=== PATIENT | male | born 1995 | race Caucasian/White ===

== ENCOUNTER 2016-07-26 13:40 | Emergency (ER) | payer BC ==
--- NOTE | 2016-07-26 15:07 | UC ---
Conchita Kate Rebecca, scribed for Nita Lemons MD on 07/26/16 at 1437 . Skin Complaint HPI - HPI Summary HPI Summary: Pt is a 21 y/o M who presents to [facility] c/o a lump on the side of the L testicle that he noticed 10 days ago for the first time. . He reports the lump to be about the size of a pea and cannot be seen from the skin. States "it feels like it is on the surface." Pt denies testicular pain. Sx aggravated and alleviated by nothing. No analgesia taken. Notes a smaller lump on the top of the R testicle as well, but this is smaller and he is most concerned about the lump on the left. Denies any open wounds on the skin. Denies pain or pruritus in the associated region. Denies fever, chills, dysuria, penile drainage, constipation and pain or blood with BM. Denies back pain, pain with erection or ejaculation. Not sexually active. No h/o STDs. Denies SOB - states that he is coming over a recent cold, no any SOB he has experience he deemed as secondary to illness. Denies sore throat. Reports he has not shaved his genital region. Denies sexual activity. Denies any recent trauma or possibility of injury during sports. When asked, pt reports that current sx are unlike typical razor irritation. Pt presents to [facility] today to r/o CA after not being able to schedule a urologist appointment. Pt without h/o cancer. Pt's mom with bladder cancer. Negative for FHx genital CA. Patients medication reviewed this visit. - History of Current Complaint Chief Complaint: UCSkin Time Seen by Provider: 07/26/16 14:35 Stated Complaint: PRIVATE (LUMP) Hx Obtained From: Patient Onset/Duration: Sudden Onset, Lasting Days - 10 days, Still Present Timing: Constant Current Severity: None Pain Intensity: 0 Pain Scale Used: 0-10 Numeric Location: Other - Testicles Aggravating: Nothing Alleviating: Nothing Associated Signs & Symptoms: Positive: Negative. Negative: Difficulty Breathing , Fever, Chills - Allergy/Home Medications Allergies/Adverse Reactions: Allergies Allergy/AdvReac Type Severity Reaction Status Date / Time No Known Allergies Allergy Verified 07/26/16 14:14 Home Medications: Home Medications Levothyroxine TAB* [Synthroid TAB*] 75 mcg PO 0800 07/26/16 [History Confirmed 07/26/16] Review of Systems Constitutional: Negative Skin: Other - Lumps on the L and R testicles, with the L being approxiamtely pea sized and the R being smaller; Denies open wounds or pain Eyes: Negative ENT: Negative Respiratory: Negative Cardiovascular: Negative Gastrointestinal: Negative Genitourinary: Other - testicular injury Motor: Negative Neurovascular: Negative Musculoskeletal: Negative Neurological: Negative Psychological: Negative All Other Systems Reviewed And Are Negative: Yes PMH/Surg Hx/FS Hx/Imm Hx Previously Healthy: Yes Endocrine History Of: Reports: Thyroid Disease Denies: Diabetes Cardiovascular History Of: Denies: Cardiac Disorders, Hypertension Respiratory History Of: Denies: COPD, Asthma GI/ History Of: Denies: Ulcer - Surgical History Surgical History: Yes Surgery Procedure, Year, and Place: Extraction of the wisdom teeth - Family History Known Family History: Positive: Other - Bladder CA (mother), negative for gential CA - Social History Occupation: Student Alcohol Use: Weekly Substance Use Type: None Smoking Status (MU): Never Smoked Tobacco Physical Exam Triage Information Reviewed: Yes Appearance: Well-Appearing, No Pain Distress, Well-Nourished, Other: - mildly anxious regarding exam and potential diagnosis Vital Signs: Initial Vital Signs Temp 97.8 F 07/26/16 14:08 Pulse 85 07/26/16 14:08 Resp 16 07/26/16 14:08 BP 120/67 07/26/16 14:08 Pulse Ox 99 07/26/16 14:08 Eye Exam: Normal ENT Exam: Normal Neck exam: Normal Respiratory Exam: Normal Cardiovascular Exam: Normal Cardiovascular: Positive: RRR, No Murmur Abdominal Exam: Normal Abdomen Description: Positive: Nontender, No Organomegaly, Soft Bowel Sounds: Positive: Present Musculoskeletal Exam: Normal Neurological Exam: Normal Neurological: Positive: Alert Psychological Exam: Normal Skin Exam: Normal Skin: Positive: Other - no lesions, erythema, discharge - Additional Comments exam no hernia b/l no lesions, drainage, discharge from penis testicles down b/l No fluctuance Pt with small (2-3mm) area left lower, outer testicle- minimally firm non tender Course/Dx - Course Course Of Treatment: Pt with small, palpable lesion left lateral lower testicle - suspicion for varicocele. Pt very anxious for non-benign process. Will check urine. will transfer to [facility] [place] [place] for ultrasound. Pt comfortable and in agreement with plan - Diagnoses Provider Diagnoses: testicular lesion - Physician Notification/Consults Discussed Patient Care With: [facility] [place] [place] ED ([facility]) who accepted the patient for transfer to receive an US. Time Discussed With Above Provider: 14:54 Discharge - Discharge Plan Condition: Stable Disposition: OTHER Discharge Disposition Comment: Transfer to [facility] [place] [place] for testicular ultrasound by private car Patient Education Materials: Testicle Pain (ED) Additional Instructions: - Go directly to emergency department at [facility] ([address]) - they are expecting you - they will follow up on your urine results when you get to the hospital - You will get an ultrasound of your testicle as well as the result today - Okay to take ibuprofen (advil, motrin) or tylenol as needed for pain The documentation as recorded by the Conchita bird Rebecca accurately reflects the service I personally performed and the decisions made by me, Nita Lemons MD.
[2016-07-26 15:33] VITALS: BP 103/58
== END 2016-07-26 15:28 | disposition left against medical advice (07) ==
LOC: UCEAST 13:40
DX: N50.9 Disorder of male genital organs, unspecified (principal)
CPT/HCPCS: 81003; 87086; 99202; G0463

== ENCOUNTER 2016-07-26 15:50 | Emergency (ER) | payer BC ==
--- NOTE | 2016-07-26 17:29 | RAD ---
HISTORY: Left testicular lump COMPARISONS: None TECHNIQUE: Multiple transverse and longitudinal ultrasound images were obtained of the scrotum, using grayscale, color Doppler, and spectral Doppler imaging. FINDINGS: RIGHT: RIGHT TESTICLE: The right testicle measures 4.6 x 2.7 x 3.2 cm. The right testicle is homogeneous in echotexture, without testicular parenchymal mass. Normal arterial and venous waveforms are identified within the right testicle on spectral Doppler imaging. RIGHT EPIDIDYMIS: The right epididymis measures 1.5 cm at the head. There is a 0.6 cm epididymal head cyst. RIGHT SCROTUM: There is no hydrocele or varicocele. LEFT: LEFT TESTICLE: The left testicle measures 4.7 x 2.8 x 2.7 cm. The left testicle is homogeneous in echotexture, without testicular parenchymal mass. Normal arterial and venous waveforms are identified within the left testicle on spectral Doppler imaging. LEFT EPIDIDYMIS: The left epididymis measures 1.2 cm at the head. LEFT SCROTUM: There is a small left hydrocele. There is a small left varicocele. OTHER: None IMPRESSION: 1. NO SONOGRAPHIC FEATURES OF TORSION. PLEASE NOTE THAT PARTIAL OR INTERMITTENT TORSION MAY BE SONOGRAPHICALLY NORMAL. 2. NO TESTICULAR PARENCHYMAL MASS. 3. SMALL LEFT HYDROCELE. 4. SMALL LEFT VARICOCELE.
[2016-07-26 18:00] VITALS: BP 99/70
--- NOTE | 2016-07-26 18:21 | ED ---
Selvin Kate Billy, scribed for Dung Flores MD on 07/26/16 at 1631 . GI/ HPI - HPI Summary HPI Summary: Patient is a 21 year-old male coming to [facility] for evaluation of a "lump" on his left testicle which he found incidentally 1 week ago. He was seen at [facility] [place] and was sent to the ED for a testicular ultrasound. He denies any pain or discharge. Denies fevers, chills, N/V. He is not sexually active. - History of Current Complaint Chief Complaint: EDUrogenitalProblems Time Seen by Provider: 07/26/16 16:16 Stated Complaint: SENT FROM [facility] Hx Obtained From: Patient Onset/Duration: Started Days Ago Timing: Constant Current Severity: None Pain Intensity: 0 Additional Locations for Males: Testicles Associated Signs and Symptoms: Negative: Nausea, Vomiting, Fever, Chills Aggravating Factor(s): Nothing Alleviating Factor(s): Nothing - Allergy/Home Medications Allergies/Adverse Reactions: Allergies Allergy/AdvReac Type Severity Reaction Status Date / Time No Known Allergies Allergy Verified 07/26/16 14:14 PMH/Surg Hx/FS Hx/Imm Hx Endocrine/Hematology History: Reports: Hx Thyroid Disease Denies: Hx Diabetes Cardiovascular History: Denies: Hx Hypertension Respiratory History: Denies: Hx Asthma, Hx Chronic Obstructive Pulmonary Disease (COPD) GI History: Denies: Hx Ulcer - Surgical History Surgery Procedure, Year, and Place: Extraction of the wisdom teeth Infectious Disease History: No Infectious Disease History: Denies: Hx Hepatitis, Hx Human Immunodeficiency Virus (HIV), Traveled Outside the [place] in Last 30 Days - Family History Known Family History: Positive: Other - Bladder CA (mother), negative for gential CA - Social History Alcohol Use: Weekly Substance Use Type: Reports: None Smoking Status (MU): Never Smoked Tobacco Review of Systems Negative: Fever, Chills Negative: Vomiting, Nausea Genitourinary: Other - lump on left testicle Negative: discharge All Other Systems Reviewed And Are Negative: Yes Physical Exam - Summary Physical Exam Summary: VITAL SIGNS: Reviewed. GENERAL: Patient is a well developed and nourished male who is lying comfortable in the stretcher. Patient is not in any acute respiratory distress. HEAD AND FACE: Normocephalic and atraumatic. EYES: PERRLA, EOMI x 2, No injected conjunctiva. EARS: Hearing grossly intact. Ear canals and tympanic membranes are WNL. MOUTH: Oropharynx within normal limits. NECK: Supple, trachea is midline, no adenopathy, no JVD. CHEST: Symmetric, no tenderness at palpation LUNGS: Clear to auscultation bilaterally. No wheezing or crackles. CVS: RRR,, S1 and S2 present, no murmurs or gallops appreciated. ABDOMEN: Soft, non-tender. No signs of distention. Positive bowel sounds. No rebound no guarding, and no masses palpated. No abdominal bruit or pulsations. EXTREMITIES: FROM in all major joints, no edema, no cyanosis or clubbing. NEURO: Alert and oriented x 3. No acute neurological deficits. Speech is normal. SKIN: Dry and warm : Circumcised penis, both testicles are descended. No masses are appreciated. Positive cremasteric reflex Triage Information Reviewed: Yes Vital Signs On Initial Exam: Initial Vitals Temp Pulse Resp BP Pulse Ox 98.5 F 76 18 97/71 98 07/26/16 15:58 07/26/16 15:58 07/26/16 15:58 07/26/16 15:58 07/26/16 15:58 Vital Signs Reviewed: Yes - [place] Coma Scale Coma Scale Total: 15 Diagnostics - Vital Signs Vital Signs Temp Pulse Resp BP Pulse Ox 07/26/16 15:58 98.5 F 76 18 97/71 98 - Laboratory Lab Statement: Any lab studies that have been ordered have been reviewed, and results considered in the medical decision making process. - Ultrasound No standard instances Ultrasound Interpretation Completed By: Radiologist - Testicular ultrasound: 1. NO SONOGRAPHIC FEATURES OF TORSION. PLEASE NOTE THAT PARTIAL OR INTERMITTENT TORSION MAY BE SONOGRAPHICALLY NORMAL. 2. NO TESTICULAR PARENCHYMAL MASS. 3. SMALL LEFT HYDROCELE. 4. SMALL LEFT VARICOCELE. GIGU Course/Dx - Course Assessment/Plan: Patient is a 21 year-old male coming to [facility] for evaluation of a "lump" on his left testicle which he found incidentally 1 week ago. He was seen at [facility] [place] and was sent to the ED for a testicular ultrasound. He denies any pain or discharge. Denies fevers, chills, N/V. He is not sexually active. Testicular ultrasound shows no sonographic features of torsion, no testicular parenchymal mass, small left hydrocele, small left varicocele.. At this point, there is no testicular torsion or pain, therefore he will be discharged home to follow up with PCP. The patient is hemodynamically stable, A&Ox3. I discussed all the findings and test results with the patient. Patient was instructed to return to the emergency room immediately if any of the symptoms return or worsens. They were explained the possibility of an early abdominal pathology which was not detected at this time despite the physical exam and testing. They understand and agree. Abdominal exam before discharge: Soft, NT. No signs of distention. BS present. No rebound no guarding, and no masses palpated. Patient is alert and oriented and hemodynamically stable. Patient is to follow up with primary care physician in the next 2 to 3 days. Patient agree and understands. - Diagnoses Provider Diagnoses: Hydrocele, Varicocele Discharge - Discharge Plan Condition: Stable Disposition: HOME Patient Education Materials: Hydrocele (ED), Varicocele (ED) Referrals: [facility] [Primary Care Provider] - The documentation as recorded by the Selvin bird Billy accurately reflects the service I personally performed and the decisions made by me, Dung Flores MD.
== END 2016-07-26 17:54 | disposition home or self-care (01) ==
LOC: ED 15:50
DX: R10.12 Left upper quadrant pain (principal)
CPT/HCPCS: 76870; 99283